=== PATIENT | male | born 1995 | race Caucasian/White ===

== ENCOUNTER → 2017-08-08 | Outpatient (CLI) | payer OTHER ==
--- NOTE | 2017-08-08 10:06 | US ---
EXAMINATION TYPE: US abdomen limited DATE OF EXAM: 08/08/2017 COMPARISON: NONE CLINICAL HISTORY: R10.13 Epigastric pain. EXAM MEASUREMENTS: Liver Length: 15.4 cm Gallbladder Wall: 0.1 cm CBD: 0.2 cm Right Kidney: 10.4 x 3.3 x 5.4 cm Pancreas: wnl Liver: wnl Gallbladder: wnl Evidence for sonographic Catalan's sign: no CBD: wnl Right Kidney: No hydronephrosis or masses seen IMPRESSION: 1. No acute process.
--- NOTE | 2017-08-08 10:07 | US ---
EXAMINATION TYPE: US groin RT DATE OF EXAM: 08/08/2017 COMPARISON: NONE CLINICAL HISTORY: K40.90 unil inguinal hernia. Right groin scanned in its entirety. Valsalva performed throughout. No evidence of hernia with this ultrasound IMPRESSION: No solid or cystic mass by ultrasound.
--- NOTE | 2017-08-08 10:40 | FL ---
EXAMINATION TYPE: FL UGI air DATE OF EXAM: 08/08/2017 COMPARISON: NONE HISTORY: Epigastric pain, anterior abdominal wall hernia right groin region TECHNIQUE: A double contrast UGI study is performed. The suspected inguinal hernia would be out of t he [id number]. FINDINGS: Esophagus dilates to normal caliber has normal contour to the gastroesophageal junction. Gastroesopha geal junction opens to normal caliber. There is complete stripping of the esophageal bolus in the hor izontal drinking position. Note is made of reflux into the distal third of the esophagus during the e xam. Fundus body and antrum of the stomach appear normal without intraluminal or extramural defects. Barium readily empties into the normally positioned duodenal cap and sweep. Ligament of Treitz is in a normal position. There is fold hypertrophy within the second portion of the duodenum. Correlate for acute duodenitis. IMPRESSION: 1. Gastroesophageal reflux into the distal third of the esophagus. 2. Duodenal fold hypertrophy within the second portion of the duodenum. Correlate for acute duodeniti s. 3. If there is suspicion of an inguinal hernia, ultrasound could be utilized. Alternative imaging cou ld include CT abdomen pelvis.
== END | disposition home or self-care (01) ==
LOC: RADUSMAIN 08:25
PROVIDERS: ATTEND Family Medicine
DX: K21.9 Gastro-esophageal reflux disease without esophagitis (principal); K31.89 Other diseases of stomach and duodenum; R10.13 Epigastric pain
CPT/HCPCS: 74246; 76705

== ENCOUNTER → 2018-11-20 | Outpatient (CLI) | payer OTHER ==
--- NOTE | 2018-11-21 10:01 | CT ---
EXAMINATION TYPE: CT abdomen pelvis wo con DATE OF EXAM: 11/20/2018 COMPARISON: None HISTORY: Left lower quadrant pain when sneezing x couple months CT DLP: 512.1 mGycm Examination of the solid and hollow viscera is limited given the lack of contrast. GI contrast was ut ilized. FINDINGS: LUNG BASES: No evidence for nodule. No evidence for infiltrate. LIVER/GB: The gallbladder is unremarkable. No space-occupying hepatic lesion. PANCREAS: No pancreatic mass identified. No inflammatory process seen. SPLEEN: No evidence for splenomegaly. No intrasplenic lesions seen. ADRENALS: No adrenal nodules identified. No evidence for thickening. KIDNEYS: No evidence for renal mass. No nephrolithiasis. No hydronephrosis. BOWEL: Appendix has a normal appearance. No evidence of bowel obstruction. No inflammatory process. Lymph nodes: No evidence for adenopathy greater than 1 cm. Abdominal aorta: Atheromatous changes seen. No evidence for aneurysm. Genital organs: No significant abnormality. Other: No significant abnormality. IMPRESSION:
== END | disposition home or self-care (01) ==
LOC: RADCTMAIN 11:36
PROVIDERS: ATTEND Family Medicine
DX: K64.9 Unspecified hemorrhoids (principal)
CPT/HCPCS: 74176; Q9967